=== PATIENT | male | born 1980 | race Caucasian/White ===

== ENCOUNTER 2016-10-28 18:36 | Emergency (ER) | payer SELFPAY ==
--- NOTE | ~2016-10-28 | ER ---
PATIENT'S NAME: NOREEN LARA [facility] AGE: 35 Y [address] ROOM: [place] [address] LOCATION: [facility] ADMIT DATE: 10/28/2016 ER/Outpatient Report DISCHARGE DATE: 10/28/2016 FAMILY PHYSICIAN: PHYSICIAN, NO ATTENDING PHYSICIAN: Jose Olson Admission date and time documented on the medical record. I saw the patient at 1850 hours. CHIEF COMPLAINT: Nausea and vomiting. HISTORY OF PRESENT ILLNESS: The patient is a 35-year-old male, who over the past 3 days has had persistent nausea and vomiting. He has had 8 to 10 episodes of vomiting a day. No diarrhea. No blood in his vomitus. The patient does have a history of peptic ulcer disease. He has a global headache, lightheaded, dizzy. No syncope or near syncope. Clammy tachycardic. He has been unable to keep anything down. Has bilateral flank pain and generalized weakness. No eyes ears, nose, throat, neck, or spine pain. No fever. No chills, but is sweaty. No abdominal pain, just bilateral flank pain. No urinary frequency, urgency, or dysuria. currently, aches all over. Weak all over, but no joint swelling or redness. No skin eruptions or rash. No history of neuro changes, psych issues, or endocrine problems. HOME MEDICATIONS: See attached medication list. ALLERGIES: NONE. SOCIAL HISTORY: The patient smokes a pack of cigarettes per day. Does drink alcohol on a daily basis on large amounts. SIGNIFICANT PAST MEDICAL HISTORY: Tobacco abuse, alcohol abuse, and peptic ulcer disease. PAST SURGICAL HISTORY: Operations, none. REVIEW OF SYSTEMS: All systems reviewed by me are negative with exception of those discussed in the history of present illness. PATIENT'S NAME: NOREEN LARA [facility] AGE: 35 Y [address] ROOM: [place] [address] LOCATION: [facility] ADMIT DATE: 10/28/2016 ER/Outpatient Report DISCHARGE DATE: 10/28/2016 FAMILY PHYSICIAN: PHYSICIAN, NO ATTENDING PHYSICIAN: Jose Olson PHYSICAL EXAMINATION: VITAL SIGNS: Temperature 97.6 tympanic, pulse 112 regular, respirations 20, blood pressure 158/92, O2 saturation on room air is 96%. HEAD: Normocephalic. No abrasion, contusion, laceration, swelling of the scalp or face. EYES: Extraocular muscles intact. PERRL. Sclerae and conjunctivae clear, nonicteric. EARS: Clear TMs bilaterally. NOSE, THROAT: Clear mucous membranes. Just a little dry. NECK: No nuchal rigidity. No thyromegaly or cervical adenopathy. SPINE: Negative. LUNGS: Clear. Good air flow. No rales, rhonchi, or wheezes. HEART: Regular. Pulses are palpable. The patient is mildly tachycardic and mildly tachypneic. ABDOMEN: No chest wall tenderness to palpation. Abdomen is soft, nondistended, and nontender. A little bit tender in his flank areas bilaterally. No true guarding or rigidity. No rebound tenderness. Bowel tones present. No organomegaly or abnormal mass palpable. EXTREMITIES: Without peripheral edema, cyanosis, or deformity. NEUROVASCULAR: Intact. SKIN: Clear. No skin eruptions or rash. LABORATORY DATA: CMS was normal except for a low potassium of 3.5. Low CO2 content of 20, mildly elevated anion gap at 19.5. AST was 61. Magnesium normal at 2.1. Amylase and lipase were normal. Acetone BHB was 19.3. CPK was normal at 213. Point of care cardiac enzymes were normal. CRP was less than 0.29. Procalcitonin was less than 0.05. Lactate was elevated at 6.4. Venous pH was 7.46. Urine showed 2 to 5 whites, rare reds, 0 to 2 epithelial cells, negative bacteria, 1+ mucus, 1+ amorphous material per high-powered field. Negative nitrates. Specific gravity 1.020. H pylori antigen was positive. [place] [address], 64 segs, 26 lymphs, 8 monos, 1 eo, 1 baso, hemoglobin was 16.8, hematocrit 46.7, platelet count is 278,000. Pro-time is 9.6 and INR 0.92. Three-view abdominal x-rays show no perforation, no obstruction, acute lung infiltrate. We will review x-ray with the radiologist. The patient was given 2.5 L of normal saline IV in the emergency room. He was given Zofran IV for nausea and vomiting. He was given Protonix 40 mg IV for his ulcer problem. Also given morphine IV for his headache. IMPRESSION: 1. Nausea and vomiting with dehydration. 2. Peptic ulcer disease, H pylori positive. 3. Alcohol abuse. 4. Tobacco abuse. PATIENT'S NAME: NOREEN LARA [facility] AGE: 35 Y [address] ROOM: [place], [place] [address] LOCATION: [facility] ADMIT DATE: 10/28/2016 ER/Outpatient Report DISCHARGE DATE: 10/28/2016 FAMILY PHYSICIAN: PHYSICIAN, NO ATTENDING PHYSICIAN: Jose Olson PLAN: The patient was discharged on home observation. Activity as tolerated. Clear liquid diet for 24 hours and advance diet as tolerated. I would like a BRAT diet for 3 to 4 days. Avoid caffeine, nicotine, alcohol, spicy, greasy, fried foods. Zofran ODT as needed for nausea, vomiting. Amoxicillin 1 g two times a day for 2 weeks. Biaxin 500 mg 2 times a day for 2 weeks. Prilosec 20 mg once a day #30 with 1 refill. Follow up with personal physician in 5 to 6 days rest. Return emergency room if needed. Discussion ensued with the patient regarding my findings and recommendations, he understands. MD ALEKSANDRA GRAJEDA/reinier /[id number] d: 10/29/164 t: 10/29/160, OUTPATIENT REPORT
[2016-10-28 19:18] LABS: BASOPHIL # 0.1 K/uL (0.0-0.2); BASOPHIL % 0.9 %; EOSINOPHIL # 0.1 K/uL (0.0-0.5); EOSINOPHIL % 0.7 %; HEMATOCRIT 46.7 % (37.0-53.0); HEMOGLOBIN 16.8 g/dL (12.0-17.0); IMMATURE GRANULOCYTE % 0.3 %; LYMPHOCYTE # 3.2 K/uL (0.8-4.0); LYMPHOCYTE % 26.2 %; MCH 32.6 pg (27.0-34.0); MCV 90.5 fl (83.0-98.0); MONOCYTE % 8.2 %; MPV 9.3 fl (9.4-12.4); NEUTROPHIL # (ANC) 7.7 K/uL (1.4-9.0); NEUTROPHIL % 63.7 %; NRBC % 0 /100WBC (0-0.00); PCO2 31 mmHg (35-45); PLATELET COUNT 278 K/uL (150-450); PO2 98 mmHg (80-90); RBC 5.16 M/uL (4.00-6.00); RDW-CV 13.3 % (11.9-14.6); WBC 12.1 K/uL (4.0-11.0)
[2016-10-28 19:24] LABS: LACTATE 6.4 mEq/L (0.50-1.60)
[2016-10-28 19:27] LABS: INR - (THERAPEUTIC) 0.92 (0.92-1.07); PROTIME 9.6 SECONDS (9.8-11.4)
[2016-10-28 19:47] LABS: ALBUMIN 4.7 gm/dL (3.5-5.0); ALK PHOS 71 IU/L (33-138); ALT 67 IU/L (12-78); ANION GAP 19.5 (10.0-19.0); AST 61 IU/L (10-40); BLOOD UREA NITROGEN 7 mg/dL (6-24); CALCIUM 9.6 mg/dL (8.5-10.5); CHLORIDE 101 mMol/L (96-110); CO2 20 mMol/L (22-32); CPK 213 IU/L (35-332); CREATININE 0.8 mg/dL (0.6-1.3); MAGNESIUM 2.1 mg/dL (1.8-2.6); POTASSIUM 3.5 mMol/L (3.7-5.1); SODIUM 137 mMol/L (135-145); TOTAL BILIRUBIN 0.9 mg/dL (0.0-1.5); TOTAL PROTEIN 8.6 g/dL (6.0-8.4)
[2016-10-28 21:42] LABS: BILIRUBIN URINE NEGATIVE (NEGATIVE); BLOOD URINE 25 /UL (NEGATIVE); COLOR URINE YELLOW (YELLOW); GLUCOSE URINE NEGATIVE (NEGATIVE); KETONE URINE 150 mg/dL (NEGATIVE); LEUKOCYTES URINE 25 /UL (NEGATIVE); NITRITE URINE NEGATIVE (NEGATIVE); PROTEIN URINE 100 mg/dL (NEGATIVE); TURBIDITY URINE CLEAR (CLEAR); UROBILINOGEN URINE 1 mg/dL (NORMAL)
[2016-10-28 21:53] LABS: BACTERIA URINE NEGATIVE (NEGATIVE); EPITHELIAL URINE 0-2 #/HPF (NEGATIVE); RBC URINE RARE #/HPF (NEGATIVE)
[2016-10-28 21:54] LABS: AMORPHOUS URINE 1+ (NEGATIVE); MUCUS URINE 1+ (NEGATIVE)
== END 2016-10-28 22:41 | disposition disaster alternative care site (69) ==
LOC: GMED 18:36
PROVIDERS: Emergency Medicine
DX: E86.0 Dehydration (principal); K27.9 Peptic ulcer, site unspecified, unspecified as acute or chronic, without hemorrhage or perforation; B96.81 Helicobacter pylori [H. pylori] as the cause of diseases classified elsewhere; F17.210 Nicotine dependence, cigarettes, uncomplicated; Z79.899 Other long term (current) drug therapy
CPT/HCPCS: C9113; J2270; J2405; J7030